=== PATIENT | female | born 2000 | race Caucasian/White ===

== ENCOUNTER 2022-12-06 13:52 | Emergency (ER) | payer OTHER, MEDICAID ==
[~2022-12-06 13:52] MED LIST: Iopamidol 370 76% 100 ML VIAL ONE
[2022-12-06] MEDS ORDERED: Ondansetron PF 4 MG/2 ML Vial ONE (14:12)
[2022-12-06] MEDS ORDERED: Morphine 4 MG/ML VIAL ONE (14:12)
[2022-12-06] MEDS ORDERED: Boostrix 0.5 ML (Tdap) VIAL (>/=7 yrs of age) ONE (14:12)
[2022-12-06] MEDS ORDERED: Sodium Chloride 0.9% 1,000 ML ONE (14:12)
[2022-12-06 14:46] LABS: #Lymphocytes 1.2 thou/uL (1.20-3.40); #Monocytes 0.4 thou/uL (0.11-0.59); #Neutrophils 8.5 thou/uL (1.40-6.50); %Basophils 0.3 % (0.0-1.0); %Eosinophils 0.4 % (0.0-10.0); %Lymphocytes 11.7 % (21.0-51.0); %Monocytes 4.2 % (0.0-10.0); %Neutrophils 83.4 % (42.0-75.0); Hemoglobin 13.3 g/dL (12.0-16.0); Mean Corpuscular HGB CONC 31.9 g/dL (32.0-36.0); Mean Corpuscular Hemoglobin 27.5 pg (27.0-31.0); Mean Corpuscular Volume 86.2 fl (78.0-98.0); Mean Platelet Volume 10.7 fL (7.4-10.4); Platelet Count 200 10x3/uL (130-400); RBC Distribution Width 12.6 % (11.5-14.5); Red Blood Cell (RBC) Count 4.85 mill/uL (4.20-5.40); White Blood Cell (WBC) Count 10.2 10x3/uL (4.8-10.8)
[2022-12-06 14:47] LABS: Bilirubin Negative (Negative); Blood, Urine Negative (Negative); Glucose, Urine (Dipstick) Negative (Negative); Ketone, Urine Negative (Negative); Leukocyte Small (Negative); Nitrite Positive (Negative); Protein, Urine (Dipstick) Negative (Neg-Trace); Urobilinogen 0.2 mg/dL (Less than 2)
[2022-12-06 14:48] LABS: Pregnancy Test - Urine (BHCG) Negative (Negative); Pregu Control Background? CLEAR/WHITE (CLR/WHITE); Pregu Control Bar Appear? YES (CONTROL BAR)
[2022-12-06 14:49] LABS: Clarity Cloudy (Clear)
[2022-12-06 14:58] LABS: Anion Gap 12 mmol/L (10-20); BUN (Urea Nitrogen) 11 mg/dL (7.0-18.7); Calc. Creatinine Clearance 0 mL/min (70-130); Carbon Dioxide 26 mmol/L (22-29); Chloride 108 mmol/L (98-107); Estimated GFR 105; Glucose 102 mg/dL (70-105); Potassium 4.2 mmol/L (3.5-5.1); Sodium 142 mmol/L (136-145)
[2022-12-06 15:02] LABS: Bacteria/HPF 2+ HPF (None Seen); RBC/HPF None Seen HPF (0-3); Squamous Epithelial 0-3 HPF (0-3); WBC/HPF 21-50 HPF (0-3)
== END 2022-12-06 16:19 | disposition home or self-care (01) ==
LOC: MADERS 13:52
DX: S30.810A Abrasion of lower back and pelvis, initial encounter (principal); S20.419A Abrasion of unspecified back wall of thorax, initial encounter; S80.212A Abrasion, left knee, initial encounter; S80.211A Abrasion, right knee, initial encounter; S60.812A Abrasion of left wrist, initial encounter; V48.1XXA Car passenger injured in noncollision transport accident in nontraffic accident, initial encounter; Z23 Encounter for immunization
CPT/HCPCS: 70450; 71260; 72125; 74177; 80048; 81003; 81015; 81025; 85025; 90471; 90715; 96374; 96375; J2270; J2405; J7050; Q9967

== ENCOUNTER 2022-12-12 22:32 | Emergency (ER) | payer MEDICAID, OTHER ==
[2022-12-12] MEDS ORDERED: Cephalexin 500 MG CAP ONE (23:05)
== END 2022-12-12 23:14 | disposition home or self-care (01) ==
LOC: MADERS 22:32
DX: L01.00 Impetigo, unspecified (principal); S80.211A Abrasion, right knee, initial encounter; S50.312A Abrasion of left elbow, initial encounter; S80.212A Abrasion, left knee, initial encounter; S30.810A Abrasion of lower back and pelvis, initial encounter; X58.XXXA Exposure to other specified factors, initial encounter
CPT/HCPCS: 87070; 87077; 87186; 87205; 99283